=== PATIENT | male | born 1960 | race Caucasian/White ===

== ENCOUNTER → 2020-06-19 09:47 | Outpatient (CLI) | payer OTHER, SELFPAY ==
[2020-06-19 11:07] LABS: Add Manual Diff / Slide Review NO; Basophils Absolute Auto 0 /uL (0-100); Basophils Percent Auto 0.6 % (0-2); Eosinophils Absolute Auto 100 /uL (0-450); Eosinophils Percent Auto 0.9 % (2-4); Hematocrit 46.2 % (41-53); Lymphocytes Absolute Auto 1800 /uL (1100-4500); Mean Corpuscular HGB Conc 34.7 % (30-36); Mean Corpuscular Hemoglobin 32.2 PG (26-34); Mean Corpuscular Volume 92.8 fL (80-100); Monocytes Absolute Auto 400 /uL (0-900); Monocytes Percent Auto 6.1 % (3-14); Neutrophils Absolute Auto 3600 /uL (1500-7000); Neutrophils Percent Auto 61.4 % (50-75); Platelet Count 209 X10^3/uL (150-400); Red Blood Cell Count 4.98 X10^6/uL (4.5-5.9); Red Cell Distribution Width 12.7 % (11.6-14.8); White Blood Cell Count 5.8 X10^3/uL (4.5-11.0)
[2020-06-19 11:21] LABS: Alanine Aminotransferase 38 IU/L (<50); Albumin 4.6 g/dL (3.5-5.0); Albumin Globulin Ratio 1.5 (1.0-2.8); Alkaline Phosphatase 64 U/L (38-126); Aspartate Aminotransferase 38 IU/L (17-59); Bilirubin Total 0.9 mg/dL (0.2-1.3); Blood Urea Nitrogen 23 mg/dL (9-20); Calcium 9.2 mg/dL (8.4-10.2); Carbon Dioxide 31 mmol/L (22-32); Chloride 102 mmol/L (98-107); Cholesterol 175 mg/dL (140-199); Estimated Glomerular Filt Rate > 60.0 mL/min (>60); Globulin 3.1 g/dL (1.7-4.1); Glucose 98 mg/dL (70-100); HDL Cholesterol 44 mg/dL (40-60); HEMOLYSIS < 15 (0-50); LDL Cholesterol Calculated 102 mg/dL (<100); Sodium 139 mmol/L (137-145); Total Protein 7.7 g/dL (6.3-8.2); Triglycerides 143 mg/dL (35-150)
[2020-06-19 11:51] LABS: Prostate Specific Antigen 1.13 ng/mL (0.10-4.00)
== END ==
PROVIDERS: PCP Family Medicine; Referring Provider Family Medicine; Visit Provider Family Medicine
DX: Z13.220 Encounter for screening for lipoid disorders (principal)
CPT/HCPCS: 36415; 80053; 80061; 84153; 85025

== ENCOUNTER → 2021-06-30 09:51 | Outpatient (CLI) | payer OTHER, SELFPAY ==
--- NOTE | 2021-06-30 09:54 | DI.RAD.S_ITS ---
PROCEDURE: XR SHOULDER RT MIN 2V INDICATIONS: hip guy TECHNIQUE: 3 views of the shoulder were acquired. COMPARISON: None. FINDINGS: Bones: No fractures or dislocations. No suspicious bony lesions. Visualized ribs appear intact. Mild arthrosis of the AC joint with calcification within the articulation. Soft tissues: No suspicious soft tissue calcifications. IMPRESSION: No acute osseous abnormality. Dictated by: Arden Mendosa M.D. on 06/30/2021 at 10:34 Approved by: Arden Mendosa M.D. on 06/30/2021 at 10:36
--- NOTE | 2021-06-30 09:54 | DI.RAD.S_ITS ---
PROCEDURE: XR HIP W PEL IF DONE RT 2V INDICATIONS: Right hip guy TECHNIQUE: AP pelvis with lateral view(s) of the right hip(s). COMPARISON: None. FINDINGS: Bones: No fractures or dislocations. Pelvic ring appears intact. No suspicious bony lesions. The sacroiliac joints are maintained. Moderate right joint space loss with osteophytosis, sclerosis of the opposing articular surfaces and fibrocystic change. Mild to moderate left joint space loss with osteophytosis. Soft tissues: The visualized bowel gas pattern is normal. No suspicious soft tissue calcifications. IMPRESSION: [id number]-left osteoarthrosis. Dictated by: Arden Mendosa M.D. on 06/30/2021 at 10:22 Approved by: Arden Mendosa M.D. on 06/30/2021 at 10:30
[2021-06-30 12:08] LABS: Add Manual Diff / Slide Review NO; Basophils Absolute Auto 0 /uL (0-100); Basophils Percent Auto 0.5 % (0-2); Eosinophils Absolute Auto 0 /uL (0-450); Eosinophils Percent Auto 0.6 % (2-4); Hematocrit 44.2 % (41-53); Hemoglobin 15.5 g/dL (13.5-17.5); Lymphocytes Absolute Auto 1800 /uL (1100-4500); Lymphocytes Percent Auto 24.5 % (25-40); Mean Corpuscular HGB Conc 35.1 % (30-36); Mean Corpuscular Hemoglobin 32.1 PG (26-34); Mean Corpuscular Volume 91.4 fL (80-100); Monocytes Absolute Auto 500 /uL (0-900); Neutrophils Absolute Auto 5000 /uL (1500-7000); Neutrophils Percent Auto 67.4 % (50-75); Platelet Count 221 X10^3/uL (150-400); Red Blood Cell Count 4.84 X10^6/uL (4.5-5.9); Red Cell Distribution Width 12.9 % (11.6-14.8); White Blood Cell Count 7.4 X10^3/uL (4.5-11.0)
[2021-06-30 13:28] LABS: Alanine Aminotransferase 35 IU/L (<50); Albumin 4.4 g/dL (3.5-5.0); Albumin Globulin Ratio 1.8 (1.0-2.8); Alkaline Phosphatase 59 U/L (38-126); Aspartate Aminotransferase 33 IU/L (17-59); BUN Creatinine Ratio 26.4 (6-22); Bilirubin Total 0.4 mg/dL (0.2-1.3); Blood Urea Nitrogen 24 mg/dL (9-20); Calcium 9.6 mg/dL (8.4-10.2); Carbon Dioxide 26 mmol/L (22-32); Chloride 103 mmol/L (98-107); Cholesterol 169 mg/dL (140-199); Estimated Glomerular Filt Rate > 60.0 mL/min (>60); Globulin 2.4 g/dL (1.7-4.1); Glucose 88 mg/dL (70-100); HDL Cholesterol 50 mg/dL (40-60); HEMOLYSIS < 15 (0-50); LDL Cholesterol Calculated 82 mg/dL (<100); Potassium 4.5 mmol/L (3.4-5.1); Sodium 138 mmol/L (137-145); Total Protein 6.8 g/dL (6.3-8.2); Triglycerides 185 mg/dL (35-150)
[2021-06-30 13:54] LABS: Thyroid Stimulating Hormone 1.79 uIU/mL (0.47-4.68)
== END ==
PROVIDERS: PCP Family Medicine; Referring Provider Family Medicine; Visit Provider Family Medicine
DX: M25.511 Pain in right shoulder (principal); M16.0 Bilateral primary osteoarthritis of hip; M25.551 Pain in right hip; M19.011 Primary osteoarthritis, right shoulder; G89.29 Other chronic pain
CPT/HCPCS: 36415; 73030; 73502; 80053; 80061; 84443; 85025

== ENCOUNTER → 2022-01-04 09:10 | Outpatient (CLI) | payer OTHER, SELFPAY ==
[2022-01-04 11:25] LABS: COVID19 -Nasal RAPID Negative (Negative)
== END ==
PROVIDERS: PCP Family Medicine; Visit Provider Surgery
DX: Z20.822 Contact with and (suspected) exposure to COVID-19 (principal); Z01.812 Encounter for preprocedural laboratory examination
CPT/HCPCS: 87635; C9803

== ENCOUNTER 2022-01-05 06:25 | Day surgery (SDC) | payer OTHER, SELFPAY ==
[2022-01-05] MEDS: LACTATED RINGERS 1,000 ML 84 ML IV (07:21)
[2022-01-05 07:28] VITALS: BP 144/78; PULSE 85; RESP 18; TEMP 36.4; O2SAT 98; BMI 26.9
--- NOTE | 2022-01-05 07:48 | PM.HP.1 ---
History of Present Illness History of Present Illness Date Patient Seen: 01/05/22 Time Patient Seen: 07:48 Chief complaint: SDC Narrative: Gilmar is here for his colonoscopy. He had a colonoscopy 5 or 6 years ago with 3 polyps removed. Patient History Family & Social History Social History: household members spouse Tobacco & Substance use: Smoking Status Never smoker alcohol intake never Substance Use Type does not use Meds Home Medications and Allergies Home Medications Medication Instructions Recorded Confirmed Type meloxicam 15 mg tablet 15 mg PO DAILY 01/04/22 01/05/22 History Allergies Allergy/AdvReac Type Severity Reaction Status Date / Time No Known Drug Allergies Allergy Verified 01/05/22 07:19 Exam Vital Signs (past 8 hours): - 01/05/22 07:28 Temperature 97.6 F Pulse Rate 85 Respiratory Rate 18 Blood Pressure 144/78 H Pulse Oximetry 98 Oxygen Delivery Method Room Air Const General: healthy appearing Resp Effort & Inspection: normal respiratory effort GI Palpation: soft Assessment & Plan Assessment and plan (1) History of colon polyps: Status: Acute Plan 61-year-old man who is in need of a colonoscopy due to a history of polyps. We reviewed the risks and benefits and he would like to proceed. COVID-19 COVID-19 status: Negative Result date/Date tested (Pos, Neg/Pending): 01/04/22 Time Spent With Patient Critical Care time: I spent a total of [] minutes of critical care time on this patient's care today; this time is exclusive of procedural time.
[2022-01-05] MEDS: fentaNYL 250 MCG/5 ML INJ 125 MCG IV (07:59)
[2022-01-05] MEDS: MIDAZOLAM 5 MG/5 ML VIAL 6 MG IV (07:59)
--- NOTE | 2022-01-05 08:25 | PM.OP.COLON ---
Operative Date/Time/Diagnoses Date of procedure: 01/05/22 Time of procedure: 08:25 Pre-op diagnosis: History of polyps Post-op diagnosis: same Procedure & Clinicians Study performed: Colonoscopy Same procedure as scheduled: Yes Procedure Notes Procedure in detail: Surgeon: Kelvin Lam MD Procedure: The patient was brought to the endoscopy suite, placed in left lateral decubitus position. The patient was connected to monitoring devices. A time-out was performed. Sedation was administered. Once the patient was adequately sedated, a digital rectal exam was performed and was normal. The scope was then inserted and advanced to the cecum where the appendiceal orifice was identified and photographed. The scope was then slowly withdrawn over greater than 6 minutes. Mucosa was thoroughly inspected. No lesions were noted. The scope was retroflexed in the rectum. No abnormalities were noted. The scope was straightened and removed. The patient was awakened and brought to recovery. Versed: 6 mg Fentanyl: 125 mcg EBL: 0 Findings: Normal colon Scope withdrawal time: 11 Sedation minutes: 24 Post-procedure Recommendations: Colonoscopy in 10 years Disposition: PACU
[2022-01-05 08:29] VITALS: BP 111/69; PULSE 73; RESP 13; TEMP 36.6; O2SAT 97
[2022-01-05 08:34] VITALS: BP 116/77; PULSE 73; RESP 12; O2SAT 97
[2022-01-05 08:44] VITALS: BP 107/71; BP 122/79; PULSE 73; PULSE 83; RESP 12; O2SAT 96; O2SAT 97
== END 2022-01-05 08:40 | disposition home or self-care (01) ==
PROVIDERS: PCP Family Medicine; Referring Provider Surgery; Visit Provider Surgery
PROC: 0DJD8ZZ Inspection of Lower Intestinal Tract, Via Natural or Artificial Opening Endoscopic (ICD-10-PCS; CPT 45378; principal; 2022-01-05 07:45)
DX: Z12.11 Encounter for screening for malignant neoplasm of colon (principal); Z86.010 Personal history of colon polyps
CPT/HCPCS: 45378; 99152; J2250; J3010

== ENCOUNTER → 2022-10-14 08:04 | Outpatient (CLI) | payer OTHER, SELFPAY ==
[2022-10-14 09:13] LABS: Add Manual Diff / Slide Review NO; Basophils Absolute Auto 0 /uL (0-100); Basophils Percent Auto 0.5 % (0-2); Eosinophils Absolute Auto 100 /uL (0-450); Eosinophils Percent Auto 0.9 % (2-4); Hematocrit 42.8 % (41-53); Hemoglobin 15.1 g/dL (13.5-17.5); Lymphocytes Absolute Auto 1400 /uL (1100-4500); Lymphocytes Percent Auto 21.7 % (25-40); Mean Corpuscular HGB Conc 35.3 % (30-36); Mean Corpuscular Hemoglobin 31.8 PG (26-34); Mean Corpuscular Volume 90.1 fL (80-100); Monocytes Absolute Auto 600 /uL (0-900); Neutrophils Absolute Auto 4300 /uL (1500-7000); Neutrophils Percent Auto 67.9 % (50-75); Platelet Count 190 X10^3/uL (150-400); Red Blood Cell Count 4.75 X10^6/uL (4.5-5.9); Red Cell Distribution Width 12.8 % (11.6-14.8); White Blood Cell Count 6.3 X10^3/uL (4.5-11.0)
[2022-10-14 09:29] LABS: Alanine Aminotransferase 102 IU/L (<50); Albumin 4.1 g/dL (3.5-5.0); Albumin Globulin Ratio 1.7 (1.0-2.8); Alkaline Phosphatase 68 U/L (38-126); Aspartate Aminotransferase 55 IU/L (17-59); BUN Creatinine Ratio 29.7 (6-22); Bilirubin Total 0.7 mg/dL (0.2-1.3); Blood Urea Nitrogen 27 mg/dL (9-20); Calcium 8.5 mg/dL (8.4-10.2); Carbon Dioxide 23 mmol/L (22-32); Chloride 103 mmol/L (98-107); Cholesterol 117 mg/dL (140-199); Estimated Glomerular Filt Rate > 60 mL/min (>60); Globulin 2.4 g/dL (1.7-4.1); Glucose 89 mg/dL (80-110); HDL Cholesterol 39 mg/dL (40-60); HEMOLYSIS < 15 (0-50); LDL Cholesterol Calculated 65 mg/dL (<100); Potassium 4.7 mmol/L (3.4-5.1); Sodium 136 mmol/L (137-145); Total Protein 6.5 g/dL (6.3-8.2); Triglycerides 66 mg/dL (35-150)
[2022-10-14 09:59] LABS: Prostate Specific Antigen 1.67 ng/mL (0.10-4.00)
[2022-10-14 10:35] LABS: Thyroid Stimulating Hormone 1.49 uIU/mL (0.47-4.68)
== END ==
PROVIDERS: PCP Family Medicine; Referring Provider Family Medicine; Visit Provider Family Medicine
DX: Z12.5 Encounter for screening for malignant neoplasm of prostate (principal); Z13.220 Encounter for screening for lipoid disorders; Z13.29 Encounter for screening for other suspected endocrine disorder; Z79.899 Other long term (current) drug therapy
CPT/HCPCS: 36415; 80053; 80061; 84153; 84443; 85025

== ENCOUNTER → 2023-11-17 08:15 | Outpatient (CLI) | payer OTHER, SELFPAY ==
[2023-11-17 09:33] LABS: Add Manual Diff / Slide Review NO; Basophils Absolute Auto 0 /uL (0-100); Basophils Percent Auto 0.5 % (0-2); Eosinophils Absolute Auto 100 /uL (0-450); Eosinophils Percent Auto 1.3 % (2-4); Hematocrit 43.6 % (41-53); Hemoglobin 15.2 g/dL (13.5-17.5); Lymphocytes Absolute Auto 2100 /uL (1100-4500); Lymphocytes Percent Auto 29.7 % (25-40); Mean Corpuscular HGB Conc 34.8 % (30-36); Mean Corpuscular Volume 91.9 fL (80-100); Monocytes Absolute Auto 500 /uL (0-900); Monocytes Percent Auto 6.5 % (3-14); Neutrophils Absolute Auto 4300 /uL (1500-7000); Platelet Count 207 X10^3/uL (150-400); Red Blood Cell Count 4.75 X10^6/uL (4.5-5.9); Red Cell Distribution Width 12.8 % (11.6-14.8)
[2023-11-17 10:05] LABS: Alanine Aminotransferase 77 IU/L (<50); Albumin 4.3 g/dL (3.5-5.0); Albumin Globulin Ratio 1.6 (1.0-2.8); Alkaline Phosphatase 75 U/L (38-126); Aspartate Aminotransferase 43 IU/L (17-59); BUN Creatinine Ratio 28.3 (6-22); Bilirubin Total 0.8 mg/dL (0.2-1.3); Blood Urea Nitrogen 26 mg/dL (9-20); Calcium 9.2 mg/dL (8.4-10.2); Carbon Dioxide 26 mmol/L (22-32); Chloride 107 mmol/L (98-107); Cholesterol 174 mg/dL (140-199); Estimated Glomerular Filt Rate > 60 mL/min (>60); Globulin 2.7 g/dL (1.7-4.1); Glucose 95 mg/dL (80-110); HDL Cholesterol 49 mg/dL (40-60); HEMOLYSIS < 15 (0-50); LDL Cholesterol Calculated 108 mg/dL (<100); Potassium 4.7 mmol/L (3.4-5.1); Sodium 140 mmol/L (137-145); Triglycerides 85 mg/dL (35-150)
== END ==
LOC: LAB 08:16
PROVIDERS: PCP Family Medicine; Referring Provider Family Medicine; Visit Provider Family Medicine
DX: Z13.220 Encounter for screening for lipoid disorders (principal)
CPT/HCPCS: 36415; 80053; 80061; 85025

== ENCOUNTER → 2023-12-22 08:50 | Outpatient (CLI) | payer OTHER, SELFPAY ==
[2023-12-22 09:43] LABS: Appearance Urine UA CLEAR; Bilirubin Urine UA NEGATIVE (NEGATIVE); Color Urine UA YELLOW; Glucose Urine UA NEGATIVE (Negative); Ketones Urine UA NEGATIVE (NEGATIVE); Leukocyte Esterase Urine UA NEGATIVE (NEGATIVE); Nitrite Urine UA NEGATIVE (Negative); Occult Blood Urine UA NEGATIVE (Negative); Protein Urine UA NEGATIVE (Negative); Urobilinogen Urine UA 0.2 E.U./dL (0.2)
[2023-12-22 09:51] LABS: Amorphous Sediment Urine 1+; Bacteria Urine None Seen; Culture Indicated Urine Cult Not Indicated; RBC Urine None Seen (0-5/HPF); Squamous Epithelial Cell Urine None Seen (0-5/HPF); Urine Volume 10mL (spun); WBC Urine 0-1/HPF (0-5/HPF)
== END ==
PROVIDERS: PCP Family Medicine; Referring Provider Orthopaedic Surgery; Visit Provider Orthopaedic Surgery
DX: Z01.818 Encounter for other preprocedural examination (principal); R73.9 Hyperglycemia, unspecified; N39.0 Urinary tract infection, site not specified
CPT/HCPCS: 36415; 81001; 83036; 93005

== ENCOUNTER 2024-03-04 08:34 | Day surgery (SDC) | payer OTHER, SELFPAY ==
[2024-02-19 13:43] VITALS: BMI 28.4
[2024-03-04] VITALS (13 sets, daily range): BP systolic 96–156; BP diastolic 54–95; PULSE 89–108; RESP 12–21; TEMP 36.1–37; O2SAT 95–100; BMI 27.6
--- NOTE | 2024-03-04 | DI.RAD.S_ITS ---
PROCEDURE: XR HIP W PEL IF DONE LT 2V INDICATIONS: ANTERIOR LEFT HIP TECHNIQUE: 2 view(s) of the hip acquired. [facility]/04/2024, 14:12. [facility], JULIANN, XR HIP W PEL IF DONE RT 2V, 06/30/2021, 9:55. FINDINGS: Intraoperative views of left hip arthroplasty. The left hip arthroplasty projects in the expected location. IMPRESSION: Intraoperative guidance. Dictated by: Robbi Alcaraz M.D. on 03/04/2024 at 18:56 Approved by: Robbi Alcaraz M.D. on 03/04/2024 at 18:57
--- NOTE | 2024-03-04 06:00 | DI.RAD.S_ITS ---
PROCEDURE: XR HIP W PEL IF DONE LT 2V INDICATIONS: total left hip TECHNIQUE: AP pelvis and lateral view of the hip acquired. COMPARISON: [facility], JULIANN, XR HIP W PEL IF DONE LT 2V, 03/04/2024, 12:46. FINDINGS: Bones: Patient is status post left hip arthroplasty, with hardware components in expected positions. The hip joint appears congruent. The visualized bony structures appear intact. Severe right hip arthritic change. Soft tissues: Overlying postoperative changes are noted. No suspicious soft tissue densities. IMPRESSION: Expected post-operative appearance of a hip arthroplasty. Dictated by: Roxy Sandhu M.D. on 03/04/2024 at 14:44 Approved by: Roxy Sandhu M.D. on 03/04/2024 at 14:44
[2024-03-04] MEDS: CELECOXIB 200 MG CAPSULE PO (08:57)
[2024-03-04] MEDS: ACETAMINOPHEN 325 MG TABLET 975 MG PO (08:57)
[2024-03-04] MEDS: LACTATED RINGERS 1,000 ML 42 ML IV ×3 (08:57→12:34)
[2024-03-04] MEDS: VANCOMYCIN 1,000 MG/200 ML PIGGYBACK 200 MG IV (10:15)
--- NOTE | 2024-03-04 11:03 | P.OP_ITS ---
Operative Date/Time/Diagnoses Date of procedure: 03/04/24 Time of procedure: 11:30 Pre-op diagnosis: Left hip avascular necrosis Post-op diagnosis: same Procedure & Clinicians Procedure: Left total hip arthroplasty anterior approach Same procedure as scheduled: Yes Indications: The patient has had progressively worsening left hip pain with radiographic changes consistent with arthritis. Non-operative management has failed and the patient has requested total hip replacement. The risks, benefits and alternatives to surgery were discussed with the patient prior to proceeding. Risks discussed included, but were not limited to, failure to relieve pain, leg length discrepancy, dislocation, stiffness, infection, nerve damage, deep venous thrombosis, pulmonary embolism, stroke, coma, heart attack, permanent paralysis and , as well as the potential need for eventual revision of the prosthetic. Surgeon: Bharti Lock Hvac Design Engineer: Shamir Denney Anesthesia Type: General and Spinal Operative Notes Findings: Severe left hip avascular necrosis, adequate bone, adequate stability Closure Type: primary Specimen(s): none sent Prosthetic devices, grafts, tissues, transplants, or devices: Lock and nephew R3 52 mm, neutral poly liner,one 6.5 mm screw, anthology A standard offset size 6, 36+ 0 Oxinium head Estimated Blood Loss (mL): 250 Blood products transfused: none Procedure in detail: The patient was brought to the operating room. Patient was carefully positioned in the supine position. Time-out was performed and antibiotics were given. Anesthesia was induced. He was positioned in the on the table in order to allow hyperextension of the hip. The left lower extremity was prepped and draped in a standard sterile fashion. An anterior left hip incision was made 1 fingerbreadth lateral to the anterior superior iliac spine and extended distally towards the greater trochanter. Dissection was carried out through skin and subcutaneous tissues. Superficial hemostasis was achieved. The fascia over the tensor fascia miguel was defined and incised with a knife. Two Allis clamps were used to grasp the fascia. Tensor fascia miguel was retracted laterally. A gelpi retractor was placed. Dissection was carried out down along the neck. The circumflex vessels were carefully identified and cauterized with the Aqua Mantis. A PA was used during the procedure and was essential for intraoperative retraction and safe implantation of the components. There was good visualization of the femoral neck. A Cobra was placed superior to the neck and the gluteus fibers were carefully stripped from that superior aspect of the capsule. A 2nd retractor was placed along the inferior aspect of the neck. The rectus insertion along the capsule was partially released. A 3rd retractor that was then gently placed over the rim of the acetabulum under the rectus. Capsule was carefully incised and released from the intertrochanteric line circumferentially superior to the mid sagittal line and inferiorly to the mid sagittal line until the lesser trochanter was palpable. A tag stitch was placed both in the superior and inferior limb of the capsular insertion. Along the acetabulum capsule was also released up to the mid sagittal 12:00 position. A portion of the labrum was resected. A saw was used to perform an osteotomy at the level of the intertrochanteric line and the junction of the superior femoral neck leaving approximately 1 finger breath of residual inferior neck above the lesser trochanter. A 2nd cut was made along the femoral neck at the base of the head and a napkin ring of neck was removed. Corkscrew was placed in the femoral head and the head was removed without difficulty. Retractors were then repositioned around the acetabulum. Residual labrum was resected and additional osteophytes were removed. A reamer that was 4 mm below the templated size was placed by hand in the acetabulum and it was reamed to centralize the acetabulum. It was then reamed up to 2 under the templated size and fluoroscopy was brought in to confirm the position of the reaming and depth of reaming. I reamed 1 under the anticipated size. A trial cup was placed and noted that it was appropriately sized and fluoroscopy confirmed position and depth. The component was open and inserted without difficulty fluoroscopic imaging was used to confirm that the cup had been adequately seated and was well positioned. It was further stabilized with a single screw. Neutral poly liner was placed. The cup was tested and noted to be stable. Attention was then directed to the femur. The femur was gently hyperextended additional capsular release was performed as needed in order to allow adequate visualization of the proximal femur with elevation of the femur. Patient was placed in a hyperextended slightly adducted position with maximum external rotation. Box osteotome was used to check for any residual neck as well as sclerotic bone along the trochanter. [place] pepper was placed in the femur. Ad ditional broaching was performed. Canal finder was used to determine the alignment of the canal and position. Size 1 broach was placed. The canal was then appropriately broached up to the templated size as long as there was adequate stability of the broach and serial advancement of the broach without excessive impingement. Specific attention was directed at avoiding varus attempting to direct the distal aspect of the broach more anteriorly and avoiding excessive anteversion. Trial reduction showed acceptable range of motion, good stability, no posterior impingement, sabianist of leg length and appropriate lateral shuck. I also hyperflexed the hip and checked that there was no impingement anteriorly and there was good stability with flexion, adduction and internal rotation. Marcaine and Exparel were injected. The stem was placed without difficulty. Repeat trial reduction and x-ray showed acceptable overall position, length, and no evidence of the femoral fracture. Final head was placed. Wound was meticulously irrigated with normal saline. The hip was reduced and additional Exparel and Marcaine were injected. The capsule was closed with interrupted nonabsorbable sutures. The fascia of the tensor was closed with interrupted and running Vicryl. No drain was placed. Any tensor fascia miguel muscle that appeared to be contused or injured which was a minimal amount was carefully resected. Capsule around the tensor was injected with Exparel and Marcaine. The skin was closed with barbed stitches for the subcutaneous tissue and skin. We also used surgical glue. The wound was dressed sterilely. Brief Betadine soak was also used and was meticulously irrigated with normal saline. Patient was transferred to recovery room in satisfactory condition. Complications: none Post-operative Condition: stable Disposition: Acute Care Plan for aftercare: The patient will be maintained on a standard total hip replacement protocol with weight bearing as tolerated and anterior hip precautions. The patient will receive Aspirin and sequential compression devices for DVT prophylaxis. The patient will be discharged home when safe for the home environment.
--- NOTE | 2024-03-04 11:03 | PM.PREOP ---
Pre-operative Note Interval Note History & Physical reviewed/Exam performed by Physician: Yes Changes to H&P: No
[2024-03-04] MEDS: CEFAZOLIN 2 GM/100 ML PREMIX 100 ML IV ×2 (11:39→19:56)
[2024-03-04] MEDS: TRANEXAMIC ACID 1,000 MG VIAL 1000 MG INJ ×2 (11:45→13:38)
--- NOTE | 2024-03-04 11:56 | SUR.OPER ---
Supine on padded [place] table with bilateral legs secured in padded positioning boots and suspended in positioning spars, operative leg in traction per surgeon. Head on one pillow. Arm on non-operative side secured on padded armboard <90 degrees abduction. Arm on operative side padded and resting across chest then secured with tape over sheet. Padded perineal post in place per surgeon.
[2024-03-04] MEDS: BUPIVACAINE 0.25% (PF) 60 ML, EPINEPHrine 0.3 MG INJ (12:01)
[2024-03-04] MEDS: BUPIVACAINE LIPOSOME 266 MG/20 ML VIAL INJ (13:41)
[2024-03-04] MEDS: LACTATED RINGERS 1,000 ML 100 ML IV ×2 (14:55→23:34)
--- NOTE | 2024-03-04 16:33 | PC.NURSE ---
Patient arrives from PACU at 1450. He is A&OX4, VSS, afebrile. He is initially diaphoretic, but denies dizziness or chills. He is weaned from 2 LNC to RA and 96 %. LLE remains numb and heavy. Aquacel C/D/I. He is oriented to room, call light in reach, IVF LR at 100ml/hr, SCD's on, admission assessment completed, bed alarm on, urinal in reach,IS encouraged and frequent rounding.
--- NOTE | 2024-03-04 18:10 | PT-IP ANOTE ---
PT eval order received and EMR reviewed. Checked on pt but pt still has numbness on LLE up to buttocks area and can only move LLE slightly and does not have full motor control back. pt is not ready for PT eval but obtained PLOF and home set up from pt and spouse. Spouse to come in tomorrow at ~ 9am for possible caregiver training with PT when appropriate. will f/u tomorrow.
[2024-03-04] MEDS: IBUPROFEN 400 MG TABLET PO ×2 (18:21→23:34)
[2024-03-04] MEDS: ACETAMINOPHEN 325 MG TABLET 650 MG PO (19:56)
[2024-03-04] MEDS: ASPIRIN EC 81 MG TABLET PO (20:02)
[2024-03-04] MEDS: DOCUSATE 100 MG CAPSULE PO (20:02)
[2024-03-05] MEDS: IBUPROFEN 400 MG TABLET PO ×2 (03:30→12:59)
[2024-03-05] MEDS: CEFAZOLIN 2 GM/100 ML PREMIX 100 ML IV (03:41)
[2024-03-05 05:45] LABS: Hematocrit 34.1 % (41-53); Hemoglobin 11.9 g/dL (13.5-17.5)
[2024-03-05] MEDS: MELOXICAM 7.5 MG TABLET 15 MG PO (08:21)
[2024-03-05] MEDS: ACETAMINOPHEN 325 MG TABLET 650 MG PO ×2 (08:22→12:58)
--- NOTE | 2024-03-05 08:22 | P.DS_ITS ---
History of Present Illness History of Present Illness Date Patient Seen: 03/05/24 Time Patient Seen: 07:30 Chief complaint: OPB Narrative: Operative Date/Time/Diagnoses Date of procedure: 03/04/24 Time of procedure: 11:30 Pre-op diagnosis: Left hip avascular necrosis Post-op diagnosis: same Procedure & Clinicians Procedure: Left total hip arthroplasty anterior approach Same procedure as scheduled: Yes Indications: The patient has had progressively worsening left hip pain with radiographic changes consistent with arthritis. Non-operative management has failed and the patient has requested total hip replacement. The risks, benefits and alternatives to surgery were discussed with the patient prior to proceeding. Risks discussed included, but were not limited to, failure to relieve pain, leg length discrepancy, dislocation, stiffness, infection, nerve damage, deep venous thrombosis, pulmonary embolism, stroke, coma, heart attack, permanent paralysis and , as well as the potential need for eventual revision of the prosthetic. Surgeon: Bharti Lock Psychology Technician: Shamir Denney Anesthesia Type: General and Spinal Operative Notes Findings: Severe left hip avascular necrosis, adequate bone, adequate stability Closure Type: primary Specimen(s): none sent Prosthetic devices, grafts, tissues, transplants, or devices: Lock and nephew R3 52 mm, neutral poly liner,one 6.5 mm screw, anthology A standard offset size 6, 36+ 0 Oxinium head Estimated Blood Loss (mL): 250 Blood products transfused: none Discharge Providers Provider Date of admission: 03/04/2024 Discharge Date: 03/05/24 Primary care physician: Joesph Miller MD Consults: 03/04/24 06:00 Consult to Anesthesiology Routine Comment: Consulting Provider: Anesthesiologist Reason for consultation: Regional block for post operative pain control Has provider been notified: No 03/04/24 14:56 Consult to Discharge Planning Routine Comment: Consult to Occupational Therapy Evaluate & Treat Comment: Physician Instructions: Evaluate and treat Consult to Physical Therapy Evaluate & Treat Comment: Physician Instructions: post op OBDULIA protocol Discharge provider: Sheldon Munoz PA-C Summary Hospital Course Discharge Diagnosis: Status post left total hip arthroplasty Hospital Course: Multimodal pain control. Physical therapy. Status at Discharge Cognitive/behavioral status at discharge: oriented Functional status at discharge: uses cane/walker Overall status at discharge: patient is back to baseline Time Spent with Patient Time spent: Less than 30 minutes Exam Vital Signs (past 8 hours): Fraction of Inspired Oxygen 26 SaO2/FiO2 Ratio 373 Oxygen Delivery Method Nasal Cannula Oxygen Flow Rate 0 Narrative Exam Narrative: Patient is found lying comfortably in bed. Pain is controlled with oral medications. He was able to ambulate with walker yesterday with assistance. Able to urinate on his own. Denies any nausea vomiting fever chills. Denies any new numbness or tingling down the left leg. 5/5 strength in hip flexors, quadriceps, hamstrings, DF, PF, EHL bilaterally. Sensation to light touch intact throughout BLE. Calves soft, compressible, nontender. Objective Labs 03/05/24 05:10 Labs: Laboratory Results - last 24 hr 03/05/24 05:10 Hgb 11.9 L Hct 34.1 L PFSH Medical History History of COVID-19 (~06/2020) Osteoarthritis Surgical History Hx of colonoscopy (01/05/22) Social History marital status: household members: spouse and children Smoking Status: Never smoker alcohol intake: never substance use type: does not use Discharge Assessment & Plan Assessment and Plan Assessment: Status post left hip total arthroplasty Plan of Treatment: Postoperative plan narrative: Standard total hip replacement protocol with weight-bearing as tolerated and posterior hip precautions Aspirin 81 mg b.i.d. for DVT prophylaxis for 6 weeks Multimodal pain management. Baseline pain control with ibuprofen 400mg and acetaminophen 500 mg q.4 hours. Patient has already been prescribed oxycodone 5 mg q.4 hours PRN for strong pain and Zofran 4 mg take every 8 hours as needed for postoperative nausea. Mobilize with physical therapy Discharge to home. Follow up in clinic in 2 weeks for wound check. Discharge Plan Discharge Plan Patient Disposition: Home Provider Discharge Comment: DC pending PT Approval Discharge orders & Medications Discharge Orders: Discharge (Order); Ordered 03/05/24 Ordered By: Sheldon Munoz Prescriptions: Continued meloxicam 15 mg tablet 15 mg PO DAILY Qty: 90 3RF Follow up/Referrals: Sheldon Munoz PA-C [[employer]] - 03/14/24 1:00 pm (appt:03/14 @ 1:00 with Edu pac @ [facility] [place] [facility] ) Joesph Miller MD [Primary Care Provider] - Diet/Activity/Treatments Diet: Diet as Tolerated Activity: Ambulate multiple times a day. Okay to use walker cane or crutches as needed. Full weight-bearing left leg Skin/Wound/Dressing Care Skin care: Okay to shower. Report to your healthcare provider any signs of infection, such as:: chills, fever, night sweats, increased pain, unusual drainage and unusual redness Dressing: Leave dressing on. Visit Report/Discharge Packet Instructions: DI for Hip Replacement, DI for Prescription Opioid Use Stand Alone Forms: Patient Portal/API, Surgery Discharge Discharge Data Primary Care Provider: Joesph Miller Attending Provider: Bharti Lock VTE Deep Vein Thrombosis/Pulmonary Embolism Present on Admission: No
[2024-03-05] MEDS: DOCUSATE 100 MG CAPSULE PO (08:23)
[2024-03-05] MEDS: ASPIRIN EC 81 MG TABLET PO (08:23)
[2024-03-05] MEDS: SODIUM CHLORIDE 0.9% FLUSH 10 ML IV (08:24)
--- NOTE | 2024-03-05 08:34 | CM.DANOTE ---
Initial DCP Assessment Visit Note Reviewed EMR and team rounds for pt's medical status and updates. Met with pt at bedside to introduce self and role, pt was found to be sitting upright in bed, alert/oriented, and able to discuss his preference for home d/c later this morning. Pt resides independently with his and children in [place], his will be transporting him home this morning after he works with PT. He denies any DCP assistance/resource needs at this time. Payor: [facility] Attending: Dr. Bharti Lock Pt is a 63 year-old M with bilateral hip osteoarthritis that has limited his mobility and function with ADL's, despite conservative efforts such as injections and exercise modification. He is post-op day 1 from a total L-hip arthroplasty surgery, and is recovering well with no postoperative complications. He states that he has all the necessary DME for home recovery needs, and is scheduled for OP PT/Ortho f/u visits. Discharge Planning/Care Management CM Discharge Assessment Start: 03/05/24 08:29 Freq: Status: Active Protocol: Document 03/05/24 08:29 DPL (Rec: 03/05/24 08:33 DPL [id number]) Discharge Planning Assessment Assigned Drywall Professional JESSICA Nogueira Advance Directives? No Advance Directives on File No History Provided By Patient,Medical Record Has Patient been admitted in last 30 No days? Prior Living Arrangements House Household Members spouse,children Type of transporation used prior to Drives own vehicle admit Independent with ADL's Yes Is patient alert and oriented? Yes Caregiver for Another No DME Already Rented / Owned Elevated Toilet Seat,FWW / Walker Patient/Family Preference OP PT Therapy Barriers to Discharge No Discharge Plan Home [facility] Hospice,Physical Therapy Transportation Arrangement Spouse Referrals Initiated None needed Whiteboard Updated in Patient Room with Yes name and ext. # of Drywall Professional Review Status In Process Please Provide Date Initial DC 03/05/24 Assessment Was Performed Pre-Anesthesia Assessment Start: 02/19/24 13:42 Freq: Status: Active Protocol: Document 02/19/24 13:43 CAB (Rec: 02/19/24 14:17 CAB [id number]) Pre-Anesthesia Assessment Preferred Name Job Patient Information Reviewed Via Phone Assessment Assessment Completed With Patient Diagnostic Results BMP/CMP,CBC,EKG Comment Labs/EKG @ Primary Care Provider Joesph Miller Seen Specialist in Last 12 Months Yes Specialist Seen Orthopedist Primary Language Romanian Solar Energy Technician Required No Height 172.72 cm Weight 84.822 kg Body Mass Index (BMI) 28.4 Hearing Ability Normal Visual Impairment No Limitations Visual Assist Magnifying Glass Dentition Type Teeth, Natural Present Barriers to Learning None Hx Anesthesia Reactions No: Pt does not have a prior surgical history Hx Family Anesthesia Reaction No Hx Malignant Hyperthermia No Hx Blood Transfusions No Hx Blood Transfusion Reaction No Anesthesia Review Requested No Arts Administrator No alcohol intake never Smoking Status Never smoker Substance Use Type does not use Pain Present Pain Reported Musculoskeletal Symptoms Abnormal Gait,Difficulty Walking,Joint Pain History of Falling (Recent or History of No ) Patient is completely paralyzed or No completely immobile Mental Status Oriented to own ability Is patient on oxygen? No Does patient have REGALADO/SOB No Hx Sleep Apnea No CPAP/BIPAP use not prescribed Currently Taking a Beta [place] No Can You Climb a Flight of Stairs Without Yes SOB Hx Chest Pain No Hx SOB No Hx Syncope or Dizziness No Anti-Coagulant Therapy No Has a Collections Clerk No Cardiac Testing No Hx Pacemaker/ICD No Pacemaker Rep Required? No Cardiac Clearance Received No Diet Type At Home Regular Dysphagia No Gastrointestinal Symptoms None Chronic UTI No Bladder Pattern Nocturia Urinary Catheter Present No Hx Urinary Self Catheterization No Diabetes No HgbA1C 6.0 Date 12/22/23 Presence of External or Internal Medical No Devices Received a COVID vaccine? No Marital Status Lives With spouse,children Current Living Arrangements House Number of Floors (Floors) Two Floors Support System Child/Children,Spouse Does the Patient Have Assistance After Yes Surgery Patient Discharge Plan Description Return Home Comment Pt advised possible same day surgery per surgeon Feels Safe in Current Environment Yes Been Physically Hurt or Threatened By a No Person in Current Environment Do you have thoughts of harming yourself None or others? Are you currently considering suicide? No Do you have a plan to hurt yourself or No Plan others? Do You Have Any Spiritual Beliefs That No May Affect Your HC Choices? Do You Have Any Cultural Practices That No May Affect Your HC Choices? Comment Binh Who Can We Speak to About Patient's Care Family, friends Identifying Code for Release of Patient Declines to issue Information Health Care Proxy/Next of Kin Lilly () Health Care Proxy Emergency Contact Name Lilly () Emergency Contact Advance Directives? No Power of Air Intercept Controller Supervisor No PAC Instructions Durable medical equipment, Medications to take/avoid, Nasal antibiotic,No ETOH/ petroleum product on skin DOS, NPO,Post-op transportation,Pre -surgical wash,Sensory aids, Sturdy shoes/comfortable clothes,Do not bring valuables and remove jewelry
--- NOTE | 2024-03-05 08:50 | PT.IIE ---
Current Diagnoses Unilateral primary osteoarthritis, left hip (03/04/24) Surgery Performed Operation Date: 03/04/24 10:45 Actual Procedures p Total Hip Arthroplasty/Anterior Approach(Left) - Bharti Lock MD Surgical History (Last Reviewed 03/04/24 @ 08:56 by Julianna Menon, RN) Hx of colonoscopy (01/05/22) Medical History (Last Reviewed 03/04/24 @ 08:56 by Julianna Menon, RN) History of COVID-19 (~06/2020) Osteoarthritis Physical Therapy Inpatient Evaluation/Re-Eval M1 PT/OT-IP Prior Functional Status Start: 03/04/24 18:08 Freq: NEEDED Status: Active Protocol: Document 03/04/24 17:00 AB (Rec: 03/04/24 18:10 AB [id number]) Medical Review Prior Functional Status Medical History Reviewed Yes Communication able to make needs known Mobility and Gait pt stated that he was independent with all mobilities and ambulation without AD Social History Household Members spouse,children Living Arrangements House Number of Floors (Floors) Two Floors Number of Stairs To Enter/Railing? pt will stay on main level of the house no steps to enter the house Home Environment Standard Height Toilet,Tub/ Shower Home Equipment Front Wheel Walker,Straight Cane,Raised Toilet Seat w/ Armrests,Shower Seat with Backrest,Hand Held Shower Additional Social History Comment pt has toilet safety frame M3 PT-IP Subjective Start: 03/04/24 18:08 Freq: NEEDED Status: Active Protocol: Document 03/05/24 08:50 AB (Rec: 03/05/24 12:19 AB [id number]) Subjective Physical Therapy Visit Type Type Initial Evaluation Visit Start Time 08:50 Visit Stop Time 09:55 Number of SALES REPRESENTATIVE PRINTING PAPER Visits 0 Physical Therapy Visit Comments Patient Comments agreeable to do PT Therapy Pain Assessment Pain When Pain Assessed At Rest Pain Present Pain Present Pain Reported Location Left Hip Intensity 4 Scale Used Numeric (0 - 10) Pain Behaviors Guarding Pain Management Techniques Apply Cold,Distraction, Modification of Treatment,Re- positioning,Timing of Activity with Medications M4 PT-IP Mobility and Gait Start: 03/04/24 18:08 Freq: NEEDED Status: Active Protocol: Document 03/05/24 08:50 AB (Rec: 03/05/24 12:19 AB [id number]) PT-Bed Mobility Assessment Supine to Sit Supine to Sit Standby Assistance Sit to Supine Sit to Supine Standby Assistance PT-Transfer Assessment Sit to and From Stand Sit to and from Stand Contact Guard Assistance,1 Person Assistance,Use of Upper Extremities Equipment Transfer Assistive Device Gait Belt,Front Wheeled Walker Orthotic/Prosthetic Devices or Brace: No Transfers Transfer Destination Chair Transfer Technique ambulated Transfer Ability Level of Assist Contact Guard Assistance Comments Mobility Comments pt supine in bed and spouse in room. reviewed post-op folder contents and educated pt and spouse regarding pt's anterior hip precatuions on LLE. pt completed supine to sit SBA but with max cues for techniques. pt requiring min A for sitting balance on EOB initially with increase posterior trunk lean noted. pt with increase trunk guarding and cued to correct. completed sit to stand CGA and cues. pt presents with heavy UE use for standing with unsteady initial standing balance. instructed pt to sit back on EOB. educated on sit <>stand techniques. pt completed sit to stand on EOB CGA and with better transition into standing and steadier standing balance. pt ambulated in room using FWW min A ~ 15 ft max cues for steadiness, hip precautions and correct shuffling gait. pt sat on the chair. educated pt regarding gait pattern and decrease trunk guarding during ambulation. pt completed sit to stand from chair SBA to CGA and ambulated in room ~ 20 ft SBA to CGA and cues. pt sat back on chair. Caregiver training conducted. educated spouse on how to use safety belt and how to assist pt. spouse was able to pust safety belt on pt and assisted pt with sit to stand and ambulation in room using FWW CGA ~ 30 ft. pt sat back on chair and rested. completed sit to stand again from chair with spouse assisting CGA and step transfers to bed using FWW SBA. pt completed sit<> supine SBA without cues. pt transferred back to chair using fWW SBA. positioned pt on the chair. call light and table placed within reach. pt and spouse without further concerns. Gait Assessment Gait Gait Assistance Required: Standby Assistance,Contact Guard Assist Distance (Feet) 40 Able to Maintain Weight Bearing Status Yes During Gait Assistive Devices Assistive Device Gait Belt,Front Wheeled Walker Orthotic/Prosthetic Devices or Brace: No Gait Deviations General Gait Pattern Antalgic,Decreased Feet Clearance Factors Limiting Gait Function Factors Limiting Gait Function Decreased Activity Tolerance, Decreased Strength,Limited Range of Motion,Pain,Poor Safety Awareness PT-Balance Assessment Sitting Balance and Reactions Static Sitting Balance Ability Fair Dynamic Sitting Balance Ability Fair Standing Balance and Reactions Static Standing Balance Ability Fair Dynamic Standing Balance Ability Fair Device Used FWW M5 PT-IP Objective Assessments Start: 03/04/24 18:08 Freq: NEEDED Status: Active Protocol: Document 03/05/24 08:50 AB (Rec: 03/05/24 12:19 AB [id number]) Orientation Orientation/Cognition Level of Alertness Alert Orientation Name,Place,Situation Language Function Ability No Deficits Noted Safety Awareness Decreased Safety Awareness Strength Lower Extremity Strength Assessment Left Impaired Hip 3+/5 Knee 4-/5 Coordination Assessment Gross Coordination Gross Coordination WNL Sensation Assessment Sensation Gross Sensation WNL Muscle Tone Muscle Tone WNL Yes M6 PT-IP Treatment Start: 03/04/24 18:08 Freq: NEEDED Status: Active Protocol: Document 03/05/24 08:50 AB (Rec: 03/05/24 12:19 AB [id number]) Physical Therapy Treatment Exercises Exercises Heel Slides Education Education Provided Precautions,Weight Bearing Status,Post-Op Packet,Safety M7 PT-IP Assessment and Plan Start: 03/04/24 18:08 Freq: NEEDED Status: Active Protocol: Document 03/05/24 08:50 AB (Rec: 03/05/24 12:19 AB [id number]) PT Summary Assessment and Plan Potential Rehabilitation Potential Fair Status of Condition at Evaluation Stable Summary Impairments Pain,ROM,Strength,Balance, Coordination,Bed Mobility, Transfers,Gait,Activity Tolerance Assessment Summary pt is a 63 y/o M s/p L OBDULIA anterior approach POD 1. pt has L hip anterior precautions and is wBAT. pt requiring SBA to CGA with mobility using FWW. caregiver training conducted and spouse was able to assist pt safely. pt may go home when medically stable. Goals Bed Mobility Goal Independent Transfer Goal Independent,Front Wheeled Walker Gait Goal Independent,Front Wheel Walker Gait Distance 200 Days to Meet Goals 3 Frequency of Treatment Frequency Of Treatment Twice a Day Treatment Plan Physical Therapy Treatment Plan Bed Mobility Training,Transfer Training,Gait Training, Therapeutic Exercise,Balance Retraining,Post Op Education, Discharge Planning,Hot or Cold Pack,Neuromuscular Re-ed, Coordination Retraining,Manual Therapy Precautions Anterior Hip Precautions No Hip Extension,No Hip External Rotation Weight Bearing Status Weight Bearing Status Weight Bear as Tolerated Allowed Weight Bearing Amount (enter % LLE WBAT or #) (%) Recommendations To Nursing Amount of Assist Needed 1 Person Assist Discharge Recommendations PT Discharge Recommendations Home with Assistance, Outpatient PT Transportation Needs at Discharge Private Vehicle
--- NOTE | 2024-03-05 08:50 | PT.IIE ---
Current Diagnoses Unilateral primary osteoarthritis, left hip (03/04/24) Surgery Performed Operation Date: 03/04/24 10:45 Actual Procedures p Total Hip Arthroplasty/Anterior Approach(Left) - Bharti Lock MD Surgical History (Last Reviewed 03/04/24 @ 08:56 by Julianna Menon, RN) Hx of colonoscopy (01/05/22) Medical History (Last Reviewed 03/04/24 @ 08:56 by Julianna Menon, RN) History of COVID-19 (~06/2020) Osteoarthritis Physical Therapy Inpatient Evaluation/Re-Eval M1 PT/OT-IP Prior Functional Status Start: 03/04/24 18:08 Freq: NEEDED Status: Active Protocol: Document 03/05/24 08:50 AB (Rec: 03/05/24 12:26 AB [id number]) Medical Review Prior Functional Status Medical History Reviewed Yes Communication able to make needs known Mobility and Gait pt stated that he was independent with all mobilities and ambulation without AD Social History Household Members spouse,children Living Arrangements House Number of Floors (Floors) Two Floors Number of Stairs To Enter/Railing? pt will stay on main level of the house no steps to enter the house Home Environment Standard Height Toilet,Tub/ Shower Home Equipment Front Wheel Walker,Straight Cane,Raised Toilet Seat w/ Armrests,Shower Seat with Backrest,Hand Held Shower Additional Social History Comment pt has toilet safety frame M2 PT-IP Current Condition Start: 03/04/24 18:08 Freq: NEEDED Status: Active Protocol: Document 03/05/24 08:50 AB (Rec: 03/05/24 12:26 AB [id number]) Physical Therapy Current Condition Current Condition Evaluation Date 03/05/24 Treatment Diagnosis s/p L OBDULIA anterior; difficulty in walking Onset Date 03/04/24 M3 PT-IP Subjective Start: 03/04/24 18:08 Freq: NEEDED Status: Active Protocol: Document 03/05/24 08:50 AB (Rec: 03/05/24 12:19 AB [id number]) Subjective Physical Therapy Visit Type Type Initial Evaluation Visit Start Time 08:50 Visit Stop Time 09:55 Number of LARDER COOK Visits 0 Physical Therapy Visit Comments Patient Comments agreeable to do PT Therapy Pain Assessment Pain When Pain Assessed At Rest Pain Present Pain Present Pain Reported Location Left Hip Intensity 4 Scale Used Numeric (0 - 10) Pain Behaviors Guarding Pain Management Techniques Apply Cold,Distraction, Modification of Treatment,Re- positioning,Timing of Activity with Medications M4 PT-IP Mobility and Gait Start: 03/04/24 18:08 Freq: NEEDED Status: Active Protocol: Document 03/05/24 08:50 AB (Rec: 03/05/24 12:19 AB [id number]) PT-Bed Mobility Assessment Supine to Sit Supine to Sit Standby Assistance Sit to Supine Sit to Supine Standby Assistance PT-Transfer Assessment Sit to and From Stand Sit to and from Stand Contact Guard Assistance,1 Person Assistance,Use of Upper Extremities Equipment Transfer Assistive Device Gait Belt,Front Wheeled Walker Orthotic/Prosthetic Devices or Brace: No Transfers Transfer Destination Chair Transfer Technique ambulated Transfer Ability Level of Assist Contact Guard Assistance Comments Mobility Comments pt supine in bed and spouse in room. reviewed post-op folder contents and educated pt and spouse regarding pt's anterior hip precatuions on LLE. pt completed supine to sit SBA but with max cues for techniques. pt requiring min A for sitting balance on EOB initially with increase posterior trunk lean noted. pt with increase trunk guarding and cued to correct. completed sit to stand CGA and cues. pt presents with heavy UE use for standing with unsteady initial standing balance. instructed pt to sit back on EOB. educated on sit <>stand techniques. pt completed sit to stand on EOB CGA and with better transition into standing and steadier standing balance. pt ambulated in room using FWW min A ~ 15 ft max cues for steadiness, hip precautions and correct shuffling gait. pt sat on the chair. educated pt regarding gait pattern and decrease trunk guarding during ambulation. pt completed sit to stand from chair SBA to CGA and ambulated in room ~ 20 ft SBA to CGA and cues. pt sat back on chair. Caregiver training conducted. educated spouse on how to use safety belt and how to assist pt. spouse was able to pust safety belt on pt and assisted pt with sit to stand and ambulation in room using FWW CGA ~ 30 ft. pt sat back on chair and rested. completed sit to stand again from chair with spouse assisting CGA and step transfers to bed using FWW SBA. pt completed sit<> supine SBA without cues. pt transferred back to chair using fWW SBA. positioned pt on the chair. call light and table placed within reach. pt and spouse without further concerns. Gait Assessment Gait Gait Assistance Required: Standby Assistance,Contact Guard Assist Distance (Feet) 40 Able to Maintain Weight Bearing Status Yes During Gait Assistive Devices Assistive Device Gait Belt,Front Wheeled Walker Orthotic/Prosthetic Devices or Brace: No Gait Deviations General Gait Pattern Antalgic,Decreased Feet Clearance Factors Limiting Gait Function Factors Limiting Gait Function Decreased Activity Tolerance, Decreased Strength,Limited Range of Motion,Pain,Poor Safety Awareness PT-Balance Assessment Sitting Balance and Reactions Static Sitting Balance Ability Fair Dynamic Sitting Balance Ability Fair Standing Balance and Reactions Static Standing Balance Ability Fair Dynamic Standing Balance Ability Fair Device Used FWW M5 PT-IP Objective Assessments Start: 03/04/24 18:08 Freq: NEEDED Status: Active Protocol: Document 03/05/24 08:50 AB (Rec: 03/05/24 12:19 AB [id number]) Orientation Orientation/Cognition Level of Alertness Alert Orientation Name,Place,Situation Language Function Ability No Deficits Noted Safety Awareness Decreased Safety Awareness Strength Lower Extremity Strength Assessment Left Impaired Hip 3+/5 Knee 4-/5 Coordination Assessment Gross Coordination Gross Coordination WNL Sensation Assessment Sensation Gross Sensation WNL Muscle Tone Muscle Tone WNL Yes M6 PT-IP Treatment Start: 03/04/24 18:08 Freq: NEEDED Status: Active Protocol: Document 03/05/24 08:50 AB (Rec: 03/05/24 12:19 AB [id number]) Physical Therapy Treatment Exercises Exercises Heel Slides Education Education Provided Precautions,Weight Bearing Status,Post-Op Packet,Safety M7 PT-IP Assessment and Plan Start: 03/04/24 18:08 Freq: NEEDED Status: Active Protocol: Document 03/05/24 08:50 AB (Rec: 03/05/24 12:19 AB [id number]) PT Summary Assessment and Plan Potential Rehabilitation Potential Fair Status of Condition at Evaluation Stable Summary Impairments Pain,ROM,Strength,Balance, Coordination,Bed Mobility, Transfers,Gait,Activity Tolerance Assessment Summary pt is a 63 y/o M s/p L OBDULIA anterior approach POD 1. pt has L hip anterior precautions and is wBAT. pt requiring SBA to CGA with mobility using FWW. caregiver training conducted and spouse was able to assist pt safely. pt may go home when medically stable. Goals Bed Mobility Goal Independent Transfer Goal Independent,Front Wheeled Walker Gait Goal Independent,Front Wheel Walker Gait Distance 200 Days to Meet Goals 3 Frequency of Treatment Frequency Of Treatment Twice a Day Treatment Plan Physical Therapy Treatment Plan Bed Mobility Training,Transfer Training,Gait Training, Therapeutic Exercise,Balance Retraining,Post Op Education, Discharge Planning,Hot or Cold Pack,Neuromuscular Re-ed, Coordination Retraining,Manual Therapy Precautions Anterior Hip Precautions No Hip Extension,No Hip External Rotation Weight Bearing Status Weight Bearing Status Weight Bear as Tolerated Allowed Weight Bearing Amount (enter % LLE WBAT or #) (%) Recommendations To Nursing Amount of Assist Needed 1 Person Assist Discharge Recommendations PT Discharge Recommendations Home with Assistance, Outpatient PT Transportation Needs at Discharge Private Vehicle
[2024-03-05 09:19] VITALS: BP 130/76; PULSE 89; RESP 17; TEMP 36.6; O2SAT 96
--- NOTE | 2024-03-05 10:08 | OT.IP.EVAL ---
Current Diagnoses Unilateral primary osteoarthritis, left hip (03/04/24) Surgery Performed Operation Date: 03/04/24 10:45 Actual Procedures p Total Hip Arthroplasty/Anterior Approach(Left) - Bharti Lock MD Past Medical History (Last Reviewed 03/04/24 @ 08:56 by Julianna Menon, RN) History of COVID-19 (~06/2020) Osteoarthritis Surgical History (Last Reviewed 03/04/24 @ 08:56 by Julianna Menon RN) Hx of colonoscopy (01/05/22) Occupational Therapy Inpatient Evaluation/Re-Eval M1 PT/OT-IP Prior Functional Status Start: 03/04/24 18:08 Freq: NEEDED Status: Active Protocol: Document 03/05/24 10:08 [facility] (Rec: 03/05/24 12:49 [facility] [id number]) Medical Review Prior Functional Status Medical History Reviewed Yes Communication able to make needs known Mobility and Gait pt stated that he was independent with all mobilities and ambulation without AD Activities of Daily Living and IADL's Pt not able to do his socks/ shoes due to pain. Social History Household Members spouse,children Living Arrangements House Number of Floors (Floors) Two Floors Number of Stairs To Enter/Railing? pt will stay on main level of the house no steps to enter the house Home Environment Standard Height Toilet,Tub/ Shower Home Equipment Front Wheel Walker,Straight Cane,Raised Toilet Seat w/ Armrests,Shower Seat with Backrest,Hand Held Shower Additional Social History Comment pt has toilet safety frame M2 OT-IP Current Condition Start: 03/05/24 12:35 Freq: Status: Active Protocol: Document 03/05/24 10:08 [facility] (Rec: 03/05/24 12:49 [facility] [id number]) Occupational Therapy Current Condition Current Condition Evaluation Date 03/05/24 Treatment Diagnosis S/P L OBDULIA Anterior approach Diagnosis Onset Date 03/04/24 Post Operative Precautions Anterior Hip Precautions No Hip Extension,No Hip External Rotation M3 OT- IP Subjective and Pain Start: 03/05/24 12:35 Freq: Status: Active Protocol: Document 03/05/24 10:08 [facility] (Rec: 03/05/24 12:49 [facility] [id number]) OT- Subjective Occupational Therapy Visit Type Type Initial Evaluation Visit Start Time 10:08 Visit Stop Time 10:41 Occupational Therapy Visit Comments Patient Comments Pt not wanting to shower but agreed to get dressed. Patient/Caregiver Goals To go home. OT Pain Assessment Pain When Pain Assessed During Mobility Pain Present Pain Present Pain Reported M4 OT- IP ADL's Start: 03/05/24 12:35 Freq: Status: Active Protocol: Document 03/05/24 10:08 [facility] (Rec: 03/05/24 12:49 [facility] [id number]) OT [id number] General Evaluation Self-Feeding Ability Independent OT ADL-Grooming Comments OT Grooming Comments NOt performed. OT ADL-Oral Care Comments Oral Care Comments Not performed. OT ADL-Dressing General Eval Upper Body Dressing Ability Independent Lower Body Dressing Ability Minimal Assistance Areas Needing Assistance Retrieving/Set-up of Clothing, Socks,Shoes Assistive Devices Dressing Assistive Devices Spring Repairer Helper Hand,Sock Aid Comments OT Dressing Comments Pt able to practice use of flash oven operator and sock aid for LB dressing needs. Pt states thinking of getting a sock aid for home use. Educated pt of not to cross his LLE for ADL needs in order to follow his anterior precautions. OT ADL-Toileting Comments OT Toileting Comments Suggested pt take a urinal home. Also that pt can use walk over the toilet with the FWW to urinate as well. OT ADL-Bathing Comments OT Bathing Comments Suggested use of tub bench or try dry run on being able to step into and out of the shower to the shower chair, or if the shower chair is wide enough to be able to sit back to with assist. Pt states to just sponge off initially. M5 OT- IP IADL's Start: 03/05/24 12:35 Freq: Status: Active Protocol: Document 03/05/24 10:08 [facility] (Rec: 03/05/24 12:49 [facility] [id number]) OT-Instrumental Activities of Daily Living Home Safety Awareness Awareness of Need for Assistance at Home Good Awareness Ability to Problem Solve Emergency Able to Problem Solve Situations Home Safety Comments Pt's has a supportive to assist and aware that he may be still groggy from surgery. Meal Preparation Meal Preparation Caregiver Provides Assist Market Asset Protection Manager Market Asset Protection Manager Caregiver Provides Assist M6 OT- IP Functional Cognition Start: 03/05/24 12:35 Freq: Status: Active Protocol: Document 03/05/24 10:08 [facility] (Rec: 03/05/24 12:49 [facility] [id number]) Cognitive Factors Limiting Selfcare Function Cognitive Ability Level of Alertness Alert Patient Orientation Name,Age,Birthday,Month,Date, Year,Day of Week,Place, Situation Attention Span Ability Capable of Focused Attention, Capable of Sustained Attention Ability to Follow Commands Able to Follow One Step Commands Memory Description No Deficits Noted Cognitive Comments Cognitive Assessment Comments Pt able to recall and follow his anterior hip precautions for ADL and mobility needs. OT- Vision and Hearing OT- Hearing Assessment OT- Hearing Assessment WFL M7 OT- IP Mobility and Balance Start: 03/05/24 12:35 Freq: Status: Active Protocol: Document 03/05/24 10:08 [facility] (Rec: 03/05/24 12:49 [facility] [id number]) OT-Transfer Assessment Sit to and From Stand Sit to and from Stand Standby Assistance Comments Mobility Comments Educated pt not to hesitate when coming up to stand. OT- Balance Assessment Sitting Balance and Reactions Static Sitting Balance Ability Good Dynamic Sitting Balance Ability Good Standing Balance and Reactions Static Standing Balance Ability Good M8 OT- IP Objective Assessments Start: 03/05/24 12:35 Freq: Status: Active Protocol: Document 03/05/24 10:08 [facility] (Rec: 03/05/24 12:49 [facility] [id number]) OT Gross Range of Motion Upper Extremity Range of Motion Assessment Within Functional Limits OT Strength Upper Extremity Strength Assessment Within Functional Limits M9 OT- IP Assessment and Plan Start: 03/05/24 12:35 Freq: Status: Active Protocol: Document 03/05/24 10:08 [facility] (Rec: 03/05/24 12:49 [facility] [id number]) OT Summary Assessment and Plan Potential Rehabilitation Potential Excellent Analytic Complexity at Evaluation Low Summary OT Impairments Pain,Strength,Balance, Functional Mobility,Dressing, Bathing Progress Towards Goals Progressing Toward Goals Assessment Summary Pt low complexity and main barrier are pain and will need assist with LB dressing and showering needs. Suggested pt get a tub bench and sock aid. Pt has a supportive family to assist. Goals Dressing Goal Independent,Spring Repairer Helper Hand,Sock Aid Toileting Goal Independent Bathing Goal Standby Assistance Toilet Transfer Goal Independent Shower Transfer Goal Contact Guard Assistance Days to Meet Goals 2 Frequency of Treatment Frequency Of Treatment Once a Day Treatment Plan OT Treatment Plan ADL Training,Functional Mobility,Patient/Family Education,Discharge Planning Discharge Recommendations OT Discharge Recommendations Home with Assistance, Outpatient PT Home Equipment Needs tub bench, sock aid Transportation Needs at Discharge Private Vehicle
--- NOTE | 2024-03-05 13:22 | PC.NURSE ---
Day shift: Paperwork signed and all questions answered. Spouse in room for d/c teachings. Dressing remains intact. CMS ok and PPP. Left unit via WC at approx 1315. Taken and helped into car by this gag writer. Tolerated well. Pt to olive picker new script for oxycodone also.
== END 2024-03-05 13:25 | disposition home or self-care (01) ==
LOC: OR 08:35 → AC 08:35
PROVIDERS: PCP Family Medicine; Referring Provider Orthopaedic Surgery; Visit Provider Orthopaedic Surgery
PROC: (CPT 27130; principal; 2024-03-04 10:45)
DX: M16.12 Unilateral primary osteoarthritis, left hip (principal); M87.052 Idiopathic aseptic necrosis of left femur; M25.752 Osteophyte, left hip
CPT/HCPCS: 27130; 36415; 73502; 76000; 85014; 85018; 97161; 97165; 97530; 97535; C1776; C9290; J0171; J0690; J1100; J2250; J2405; J2704; J3010

== ENCOUNTER → 2024-05-10 07:41 | Outpatient (CLI) | payer OTHER, SELFPAY ==
[2024-03-04 16:47] VITALS: BMI 27.6
[2024-05-10 09:07] LABS: Add Manual Diff / Slide Review NO; Basophils Absolute Auto 100 /uL (0-100); Eosinophils Absolute Auto 100 /uL (0-450); Eosinophils Percent Auto 2.1 % (2-4); Hematocrit 42.7 % (41-53); Hemoglobin 14.5 g/dL (13.5-17.5); Lymphocytes Absolute Auto 1800 /uL (1100-4500); Lymphocytes Percent Auto 29.4 % (25-40); Mean Corpuscular Hemoglobin 31.4 PG (26-34); Mean Corpuscular Volume 92.3 fL (80-100); Monocytes Absolute Auto 400 /uL (0-900); Monocytes Percent Auto 6.8 % (3-14); Neutrophils Absolute Auto 3700 /uL (1500-7000); Neutrophils Percent Auto 60.7 % (50-75); Platelet Count 200 X10^3/uL (150-400); Red Blood Cell Count 4.63 X10^6/uL (4.5-5.9); White Blood Cell Count 6.1 X10^3/uL (4.5-11.0)
[2024-05-10 10:28] LABS: BUN Creatinine Ratio 33.7 (6-22); Blood Urea Nitrogen 30 mg/dL (9-20); Calcium 9.4 mg/dL (8.4-10.2); Carbon Dioxide 25 mmol/L (22-32); Chloride 104 mmol/L (98-107); Estimated Glomerular Filt Rate > 60 mL/min (>60); Glucose 126 mg/dL (80-110); HEMOLYSIS < 15 (0-50); Potassium 4.4 mmol/L (3.4-5.1); Sodium 137 mmol/L (137-145)
== END ==
LOC: LAB 07:42
PROVIDERS: PCP Family Medicine; Referring Provider Orthopaedic Surgery; Visit Provider Orthopaedic Surgery
DX: Z01.812 Encounter for preprocedural laboratory examination (principal)
CPT/HCPCS: 36415; 80048; 85025

== ENCOUNTER 2024-05-20 08:26 | Day surgery (SDC) | payer OTHER, SELFPAY ==
[2024-03-04 16:47] VITALS: BMI 27.6
[2024-05-15 14:21] VITALS: BMI 27.5
[2024-05-20] VITALS (17 sets, daily range): BP systolic 100–159; BP diastolic 66–93; PULSE 75–108; RESP 12–18; TEMP 35.9–36.8; O2SAT 93–100; BMI 27.5
--- NOTE | 2024-05-20 | DI.RAD.S_ITS ---
PROCEDURE: XR HIP W PEL IF DONE RT 4V INDICATIONS: TOTAL RT HIP TECHNIQUE: 4 intraoperative fluoroscopic views of the hip acquired. COMPARISON: [facility], CR, XR HIP W PEL IF DONE LT 2V, 03/04/2024, 14:12. FINDINGS: Intraoperative fluoroscopic images shows right total hip arthroplasty. Right hip alignment is anatomic. There is also prior left total hip arthroplasty. IMPRESSION: Fluoro guidance was provided intraoperatively for right total hip arthroplasty. Dictated by: Lj Vann M.D. on 05/20/2024 at 12:44 Approved by: Lj Vann M.D. on 05/20/2024 at 12:44
--- NOTE | 2024-05-20 06:00 | DI.RAD.S_ITS ---
PROCEDURE: XR HIP W PEL IF DONE RT 2V INDICATIONS: panda TECHNIQUE: AP pelvis and lateral view of the hip acquired. COMPARISON: [facility], CR, XR HIP W PEL IF DONE RT 4V, 05/20/2024, 11:35. FINDINGS: Bones: Patient is status post right hip arthroplasty, with hardware components in expected positions. The hip joint appears congruent. The visualized bony structures appear intact. Soft tissues: Overlying postoperative changes are noted. No suspicious soft tissue densities. IMPRESSION: Expected post-operative appearance of a hip arthroplasty. Dictated by: Lj Vann M.D. on 05/20/2024 at 13:17 Approved by: Lj Vann M.D. on 05/20/2024 at 13:18
[2024-05-20] MEDS: LACTATED RINGERS 1,000 ML 42 ML IV ×2 (09:09→11:59)
[2024-05-20] MEDS: CELECOXIB 200 MG CAPSULE PO (09:10)
[2024-05-20] MEDS: ACETAMINOPHEN 325 MG TABLET 975 MG PO (09:10)
[2024-05-20] MEDS: VANCOMYCIN 1,000 MG/200 ML PIGGYBACK 200 MG IV (09:27)
--- NOTE | 2024-05-20 10:07 | PM.PREOP ---
Pre-operative Note Interval Note History & Physical reviewed/Exam performed by Physician: Yes Changes to H&P: No
--- NOTE | 2024-05-20 10:08 | P.OP_ITS ---
Operative Date/Time/Diagnoses Date of procedure: 05/20/24 Time of procedure: 11:00 Pre-op diagnosis: Right hip avascular necrosis Post-op diagnosis: same Procedure & Clinicians Procedure: Right total hip arthroplasty anterior approach Same procedure as scheduled: Yes Indications: The patient has had progressively worsening right hip pain with radiographic changes consistent with arthritis. Non-operative management has failed and the patient has requested total hip replacement. The risks, benefits and alternatives to surgery were discussed with the patient prior to proceeding. Risks discussed included, but were not limited to, failure to relieve pain, leg length discrepancy, dislocation, stiffness, infection, nerve damage, deep venous thrombosis, pulmonary embolism, stroke, coma, heart attack, permanent paralysis and , as well as the potential need for eventual revision of the prosthetic. Surgeon: Bharti Lock Formulation Technician: Shamir Denney Anesthesia Type: General and Spinal Operative Notes Findings: Severe right hip avascular necrosis, adequate bone, adequate stability Closure Type: primary Specimen(s): none sent Prosthetic devices, grafts, tissues, transplants, or devices: Lock and nephew R3 52 mm, neutral poly liner,one 6.5 mm screw, size 6 anthology A, 36 x +0 Oxinium head Estimated Blood Loss (mL): 250 Blood products transfused: none Procedure in detail: The patient was brought to the operating room. Patient was carefully positioned in the supine position. Time-out was performed and antibiotics were given. Anesthesia was induced. He was positioned in the on the table in order to allow hyperextension of the hip. The right lower extremity was prepped and draped in a standard sterile fashion. An anterior right hip incision was made 1 fingerbreadth lateral to the anterior superior iliac spine and extended distally towards the greater trochanter. Dissection was carried out through skin and subcutaneous tissues. Superficial hemostasis was achieved. The fascia over the tensor fascia miguel was defined and incised with a knife. Two Allis clamps were used to grasp the fascia. Tensor fascia miguel was retracted laterally. A gelpi retractor was placed. Dissection was carried out down along the neck. The circumflex vessels were carefully identified and cauterized with the Aqua Mantis. A PA was used during the procedure was essential for intraoperative retraction and safe implantation of the components. There was good visualization of the femoral neck. A Cobra was placed superior to the neck and the gluteus fibers were carefully stripped from that superior aspect of the capsule. A 2nd retractor was placed along the inferior aspect of the neck. The rectus insertion along the capsule was partially released. A 3rd retractor that was then gently placed over the rim of the acetabulum under the rectus. Capsule was carefully incised and released from the intertrochanteric line circumferentially superior to the mid sagittal line and inferiorly to the mid sagittal line until the lesser trochanter was palpable. A tag stitch was placed both in the superior and inferior limb of the capsular insertion. Along the acetabulum capsule was also released up to the mid sagittal 12:00 position. A portion of the labrum was resected. A saw was used to perform an osteotomy at the level of the intertrochanteric line and the junction of the superior femoral neck leaving approximately 1 finger breath of residual inferior neck above the lesser trochanter. A 2nd cut was made along the femoral neck at the base of the head and a napkin ring of neck was removed. Corkscrew was placed in the femoral head and the head was removed without difficulty. Retractors were then repositioned around the acetabulum. Residual labrum was resected and additional osteophytes were removed. A reamer that was 4 mm below the templated size was placed by hand in the acetabulum and it was reamed to centralize the acetabulum. It was then reamed up to 2 under the templated size and fluoroscopy was brought in to confirm the position of the reaming and depth of reaming. I reamed 1 under the anticipated size. A trial cup was placed and noted that it was appropriately sized and fluoroscopy confirmed position and depth. The component was open and inserted without difficulty fluoroscopic imaging was used to confirm that the cup had been adequately seated and was well positioned. Neutral poly liner was placed. The cup was tested and noted to be stable. Attention was then directed to the femur. The femur was gently hyperextended additional capsular release was performed as needed in order to allow adequate visualization of the proximal femur with elevation of the femur. Patient was placed in a hyperextended slightly adducted position with maximum external rotation. Box osteotome was used to check for any residual neck as well as sclerotic bone along the trochanter. [place] pepper was placed in the femur. Additional broaching was performed. Canal finder was used to determine the alignment of the canal and position. Size 1 broach was placed. The canal was then appropriately broached up to the templated size as long as there was adequate stability of the broach and serial advancement of the broach without excessive impingement. Specific attention was directed at avoiding varus attempting to direct the distal aspect of the broach more anteriorly and avoiding excessive anteversion. Trial reduction showed acceptable range of motion, good stability, no posterior impingement, congregation of leg length and appropriate lateral shuck. I also hyperflexed the hip and checked that there was no impingement anteriorly and there was good stability with flexion, adduction and internal rotation. Marcaine and Exparel were injected.. The stem was placed without difficulty. Repeat trial reduction and x-ray showed acceptable overall position, length, and no evidence of the femoral fracture. Final head was placed. Wound was meticulously irrigated with normal saline. The hip was reduced and additional Exparel and Marcaine were injected. The capsule was closed with interrupted nonabsorbable sutures. The fascia of the tensor was closed with interrupted and running Vicryl. No drain was placed. Any tensor fascia miguel muscle that appeared to be contused or injured which was a minimal amount was carefully resected. Capsule around the tensor was injected with Exparel and Marcaine. The skin was closed with barbed stitches for the subcutaneous tissue and skin. We also used surgical glue. The wound was dressed sterilely. Brief Betadine soak was also used and was meticulously irrigated with normal saline. Patient was transferred to recovery room in satisfactory condition. Complications: none Post-operative Condition: stable Disposition: Acute Care Plan for aftercare: The patient will be maintained on a standard total hip replacement protocol with weight bearing as tolerated and anterior hip precautions. The patient will receive Aspirin and sequential compression devices for DVT prophylaxis. The patient will be discharged home when safe for the home environment.
--- NOTE | 2024-05-20 10:32 | SUR.OPER ---
Patient supine on padded Sheldon table, one arm on padded arm board at <90, other arm padded and secured with tape across patient's chest, both legs secured in padded traction boots and positioned per surgeon, padded post at patient's groin, pressure points checked and padded.
[2024-05-20] MEDS: CEFAZOLIN 2 GM/100 ML PREMIX 100 ML IV ×2 (10:45→19:31)
[2024-05-20] MEDS: BUPIVACAINE 0.25% (PF) 60 ML, EPINEPHrine 0.3 MG INJ (10:56)
[2024-05-20] MEDS: TRANEXAMIC ACID 1,000 MG VIAL 2000 MG INJ ×2 (10:56→12:28)
[2024-05-20] MEDS: BUPIVACAINE LIPOSOME 266 MG/20 ML VIAL INJ (10:57)
--- NOTE | 2024-05-20 13:19 | SUR.PHASEI ---
Tried to call report and the RN is unable to take report. She is in a room.
[2024-05-20] MEDS: LACTATED RINGERS 1,000 ML 100 ML IV (14:38)
--- NOTE | 2024-05-20 15:22 | OT.IPNOTE ---
Spoke to pt regarding OT needs. Pt just had his other hip done 03/04/24 and has no OT needs at this time. Pt has a very supportive to assist and that they did sampler pickup a shower chair that was suggested from last admission. Pt states just wanting to see PT. Discharge OT eval orders.
[2024-05-20] MEDS: ACETAMINOPHEN 325 MG TABLET 650 MG PO (17:13)
[2024-05-20] MEDS: ASPIRIN EC 81 MG TABLET PO (20:30)
[2024-05-21] VITALS: BP 113/74; PULSE 100; RESP 18; TEMP 36.1; O2SAT 95
[2024-05-21] MEDS: CEFAZOLIN 2 GM/100 ML PREMIX 100 ML IV (02:41)
[2024-05-21] MEDS: ACETAMINOPHEN 325 MG TABLET 650 MG PO ×2 (02:45→09:00)
[2024-05-21 04:33] LABS: Hematocrit 36.6 % (41-53); Hemoglobin 12.8 g/dL (13.5-17.5)
[2024-05-21] MEDS: LACTATED RINGERS 1,000 ML 100 ML IV (05:16)
--- NOTE | 2024-05-21 07:28 | PM.DS.1 ---
History of Present Illness History of Present Illness Date Patient Seen: 05/21/24 Time Patient Seen: 07:29 Chief complaint: Hip pain Narrative: Hip pain is [id number]. No fever or chills. No nausea or vomiting. Patient has his home to assist him. Patient has been out of bed since surgery. Patient urinating on his own. Discharge Providers Provider Discharge Date: 05/21/24 Primary care physician: Joesph Miller MD Consults: 05/20/24 06:00 Consult to Anesthesiology Routine Comment: Consulting Provider: Anesthesiologist Reason for consultation: Regional block for post operative pain control 05/20/24 13:45 Consult to Discharge Planning Routine Comment: Consult to Occupational Therapy Evaluate & Treat Comment: Physician Instructions: Evaluate and treat Consult to Physical Therapy Evaluate & Treat Comment: Physician Instructions: post op OBDULIA protocol Discharge provider: Shamir Denney PA-C Summary Hospital Course Discharge Diagnosis: Right hip avascular necrosis Hospital Course: Right total hip arthroplasty anterior approach Same procedure as scheduled: Yes Indications: The patient has had progressively worsening right hip pain with radiographic changes consistent with arthritis. Non-operative management has failed and the patient has requested total hip replacement. The risks, benefits and alternatives to surgery were discussed with the patient prior to proceeding. Risks discussed included, but were not limited to, failure to relieve pain, leg length discrepancy, dislocation, stiffness, infection, nerve damage, deep venous thrombosis, pulmonary embolism, stroke, coma, heart attack, permanent paralysis and , as well as the potential need for eventual revision of the prosthetic. Surgeon: Bharti Lock Nickel Plant Operator: Shamir Denney Anesthesia Type: General and Spinal Operative Notes Findings: Severe right hip avascular necrosis, adequate bone, adequate stability Closure Type: primary Specimen(s): none sent Prosthetic devices, grafts, tissues, transplants, or devices: Lock and nephew R3 52 mm, neutral poly liner,one 6.5 mm screw, size 6 anthology A, 36 x +0 Oxinium head Estimated Blood Loss (mL): 250 Blood products transfused: none Patient admitted for right total hip arthroplasty. Patient consented to the same. Patient underwent right total hip arthroplasty May 20, 2024. Patient back in his room recovering in stable condition. Patient will mobilize with physical therapy. Multimodal pain management. Anterior hip precautions. Discharge home today after physical therapy if safe for home environment. Exam Vital Signs (past 8 hours): - 05/21/24 00:00 Temperature 97 F L Pulse Rate 100 H Respiratory Rate 18 Blood Pressure 113/74 Pulse Oximetry 95 Oxygen Flow Rate 0 Oxygen Delivery Method Nasal Cannula Oxygen Flow Rate 0 Narrative Exam Narrative: 63-year-old resting comfortably in bed no apparent distress. Neurovascular status is intact bilateral lower extremities. Const General: cooperative and comfortable Nutritional Appearance: average body habitus Resp Effort & Inspection: normal respiratory effort and able to speak in complete sentences Objective Labs 05/21/24 04:21 Labs: Laboratory Results - last 24 hr 05/21/24 04:21 Hgb 12.8 L Hct 36.6 L PFSH Medical History History of COVID-19 (~06/2020) Osteoarthritis Surgical History History of total left hip arthroplasty (03/04/24) Hx of colonoscopy (01/05/22) Social History marital status: household members: spouse and children Smoking Status: Never smoker alcohol intake: never substance use type: does not use Discharge Assessment & Plan Assessment and Plan Assessment: Patient progressing as expected Plan of Treatment: Multimodal pain management Anterior hip precautions Discharge home today after PT if safe for home environment Discharge Plan Discharge Plan Patient Disposition: Home Discharge orders & Medications Discharge Orders: Discharge (Order); Ordered 05/21/24 Ordered By: Shamir Denney Prescriptions: New acetaminophen 325 mg Tablet 650 mg PO Q6H PRN (Reason: Fever/Mild Pain (1-3)) Qty: 60 0RF aspirin 81 mg Tablet,Delayed Release (Dr/Ec) 81 mg PO BID Qty: 60 0RF polyethylene glycol 3350 17 gram Powder In Packet 17 g PO DAILY PRN (Reason: Constipation) Qty: 14 0RF Continued meloxicam 15 mg tablet 15 mg PO DAILY Qty: 90 3RF Follow up/Referrals: Joesph Miller MD [Primary Care Provider] - Bharti Lock MD [Physician] - (2 weeks as scheduled) Diet/Activity/Treatments Diet: Diet as Tolerated Activity: Weightbearing as tolerated, anterior hip precautions Cold/Heat Therapy: Ice to hip as needed Skin/Wound/Dressing Care Report to your healthcare provider any signs of infection, such as:: chills, fever, night sweats, increased pain, unusual drainage and unusual redness Dressing: Keep dressing clean and dry Visit Report/Discharge Packet Instructions: DI for Hip Replacement Stand Alone Forms: Patient Portal/API, Surgery Discharge Discharge Data Primary Care Provider: Joesph Miller Attending Provider: Bharti Lock VTE Deep Vein Thrombosis/Pulmonary Embolism Present on Admission: No
[2024-05-21 08:00] VITALS: BP 122/77; PULSE 93; RESP 18; TEMP 36.4; O2SAT 93
[2024-05-21] MEDS: MELOXICAM 7.5 MG TABLET 15 MG PO (09:00)
[2024-05-21] MEDS: ASPIRIN EC 81 MG TABLET PO (09:00)
--- NOTE | 2024-05-21 09:01 | CM.DANOTE ---
DCP Assessment Note Pt is a 63yo M POD1 from left hip surgery with Dr. Lock. Pt had right hip surgery with Dr. Lock February [address]24. PCP Dr. 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 Per chart, last hip surgery in February pt discharged home same day with family support, no CM needs. HEALTH OCCUPATIONS TEACHER met with pt in room and introduced self and role. Pt confirms living in [place] with spouse. Pt reports having all the necessary equipment from previous surgery. Pt preference is to dc home earlier today, denies and DCP assistance/resources at this time. PT pending. OT met with pt and determined no OT needs at this time. P: home later today with spouse support and OP PT follow up. No identified barriers to safe dc home at this time. CM team will continue to follow as needed JESSICA Diamond Discharge Planning/Care Management Advanced directive, confirm from FAMILY Start: 05/20/24 14:12 Freq: Q24H Status: Active Protocol: Document 05/20/24 14:12 LW (Rec: 05/20/24 14:16 LW [id number]) Advance Directive, confirm on record Time 14:16 Person contacted pt Copy received No CM Discharge Assessment Start: 05/21/24 09:00 Freq: Status: Active Protocol: Document 05/21/24 09:00 SL (Rec: 05/21/24 09:01 SL [id number]) Discharge Planning Assessment Assigned Tape Maker JESSICA Murphy DPOA/Assigned Designee Name Lilly, spouse Contact Information [phone] Advance Directives? No Advance Directives on File No History Provided By Patient,Medical Record Prior Living Arrangements House Household Members spouse,children Type of transporation used prior to Drives own vehicle admit Independent with ADL's Yes Is patient alert and oriented? Yes DME Already Rented / Owned FWW / Walker,Other Patient/Family Preference OP PT Therapy Discharge Plan Home Transportation Arrangement Spouse Referrals Initiated None needed Whiteboard Updated in Patient Room with Yes name and ext. # of Tape Maker Review Status In Process Please Provide Date Initial DC 05/21/24 Assessment Was Performed Next Review Type Continued Stay Review Pre-Anesthesia Assessment Start: 05/15/24 13:57 Freq: Status: Active Protocol: Document 05/15/24 14:21 LB (Rec: 05/15/24 14:33 LB [id number]) Pre-Anesthesia Assessment Patient Information Reviewed Via Phone Assessment Assessment Completed With Patient Diagnostic Results BMP/CMP,CBC Comment 05/10/24 at . Primary Care Provider Joesph Miller Medical Clearance Received Not Applicable Seen Specialist in Last 12 Months Yes Specialist Seen Orthopedist Primary Language Salvadorean Preferred Language Salvadorean Supervisor Vendor Quality Required No Height 172.72 cm Weight 82.1 kg Body Mass Index (BMI) 27.5 Hearing Ability Normal Visual Assist Glasses Dentition Type Teeth, Natural Present Barriers to Learning None Comment Reading glasses. Hx Anesthesia Reactions No Hx Family Anesthesia Reaction No Hx Malignant Hyperthermia No Hx Blood Transfusions No Hx Blood Transfusion Reaction No Anesthesia Review Requested No Butcher Scullion No alcohol intake never Smoking Status Never smoker Substance Use Type does not use Pain Present Pain Reported Comment right hip. Musculoskeletal Symptoms Joint Pain History of Falling (Recent or History of No ) Patient is completely paralyzed or No completely immobile Mental Status Oriented to own ability Is patient on oxygen? No Does patient have REGALADO/SOB No Hx Sleep Apnea No CPAP/BIPAP use not prescribed Currently Taking a Beta [place] No Can You Climb a Flight of Stairs Without Yes SOB Hx Chest Pain No Hx SOB No Hx Syncope or Dizziness No Anti-Coagulant Therapy No Cardiac Testing No Hx Pacemaker/ICD No Dysphagia No Chronic UTI No Urinary Catheter Present No Hx Urinary Self Catheterization No Diabetes No Presence of External or Internal Medical Yes: left hip hardware. Devices Have you had any close contact with No someone diagnosed with COVID-19? Are you experiencing any of these No symptoms symptoms? Received a COVID vaccine? No Marital Status Lives With spouse,children Current Living Arrangements House Number of Floors (Floors) Two Floors Number of Stairs To Enter/Railing? no steps need to be used. Support System Spouse Does the Patient Have Assistance After Yes Surgery Patient Discharge Plan Description Return Home Feels Safe in Current Environment Yes Do you have a plan to hurt yourself or No Plan others? Do You Have Any Spiritual Beliefs That No May Affect Your HC Choices? Do You Have Any Cultural Practices That No May Affect Your HC Choices? Emergency Contact Name Lilly () Emergency Contact Advance Directives? No Advance Directives on File No Power of Battery Charger Conveyor Line No PAC Instructions Durable medical equipment, Nasal antibiotic,No ETOH/ petroleum product on skin DOS, NPO,Post-op transportation,Pre -surgical wash,Sturdy shoes/ comfortable clothes,Do not bring valuables and remove jewelry
--- NOTE | 2024-05-21 09:10 | PT.IIE ---
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) Surgery Performed Operation Date: 05/20/24 10:45 Actual Procedures p Total Hip Arthroplasty/Anterior Approach(Right) - Bharti Lock MD Surgical History (Last Reviewed 05/21/24 @ 07:32 by Shamir Denney PA-C) History of total left hip arthroplasty (03/04/24) Hx of colonoscopy (01/05/22) Medical History (Last Reviewed 05/21/24 @ 07:32 by Shamir Denney PA-C) History of COVID-19 (~06/2020) Osteoarthritis Physical Therapy Inpatient Evaluation/Re-Eval M1 PT/OT-IP Prior Functional Status Start: 05/21/24 11:28 Freq: NEEDED Status: Active Protocol: Document 05/21/24 09:10 AB (Rec: 05/21/24 11:40 AB [id number]) Medical Review Prior Functional Status Medical History Reviewed Yes Communication able to make needs known Mobility and Gait pt stated that he was independent with all mobilities and ambulation without AD Social History Household Members spouse,children Living Arrangements House Number of Floors (Floors) Two Floors Number of Stairs To Enter/Railing? 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 M2 PT-IP Current Condition Start: 05/21/24 11:28 Freq: NEEDED Status: Active Protocol: Document 05/21/24 09:10 AB (Rec: 05/21/24 11:40 AB [id number]) Physical Therapy Current Condition Current Condition Evaluation Date 05/21/24 Treatment Diagnosis s/p R OBDULIA anterior; difficulty in walking Onset Date 05/20/24 M3 PT-IP Subjective Start: 05/21/24 11:28 Freq: NEEDED Status: Active Protocol: Document 05/21/24 09:10 AB (Rec: 05/21/24 11:40 AB [id number]) Subjective Physical Therapy Visit Type Type Initial Evaluation Visit Start Time 09:10 Visit Stop Time 09:55 Number of TUBE CUTTER Visits 0 Physical Therapy Visit Comments Patient Comments agreeable to do PT Therapy Pain Assessment Pain When Pain Assessed At Rest Pain Present Pain Present Pain Reported Location Right Hip Intensity 3 Scale Used Numeric (0 - 10) Pain Management Techniques Distraction,Modification of Treatment,Re-positioning, Timing of Activity with Medications M4 PT-IP Mobility and Gait Start: 05/21/24 11:28 Freq: NEEDED Status: Active Protocol: Document 05/21/24 09:10 AB (Rec: 05/21/24 11:40 AB [id number]) PT-Bed Mobility Assessment Supine to Sit Supine to Sit Standby Assistance PT-Transfer Assessment Sit to and From Stand Sit to and from Stand Standby Assistance,Contact Guard Assistance,1 Person Assistance,Use of Upper Extremities Equipment Transfer Assistive Device Gait Belt,Front Wheeled Walker Orthotic/Prosthetic Devices or Brace: No Transfers Transfer Destination Chair Transfer Technique ambulated Comments Mobility Comments pt supine in bed and agreeable to do PT. obtained PLOF and home setup from pt. post-op folder provided and reviewed contents. educated pt on anterior hip precautions. pt had an anterior OBDULIA on LLE ~ 2 months ago but pt does not remember his precautions. BP: 113/65 PA: 106 O2 sat: 99 % pt completed supine to sit SBA . able to sit on EOB SBA. completed sit to stand from EOB CGA and ambulated to chair using FWW ~ 12 ft CGA. slight buckling on R knee noted but able to stabilize afte cued. educated pt regarding techniques for controlled sitting. reviewed precautions again and how to activate R quads during ambulation. pt agreed to walk again. sit to stand from chair SBA and ambulated in the hallway using FWW SBA to CGA ~ 100 ft and cues provided. pt sat back on chair. positioned pt on the chair. call light and table placed within reach. pt without further concerns. Gait Assessment Gait Gait Assistance Required: Standby Assistance,Contact Guard Assist Distance (Feet) 100 Able to Maintain Weight Bearing Status Yes During Gait Assistive Devices Assistive Device Gait Belt,Front Wheeled Walker Orthotic/Prosthetic Devices or Brace: No Gait Deviations General Gait Pattern Antalgic,Decreased Feet Clearance Factors Limiting Gait Function Factors Limiting Gait Function Decreased Activity Tolerance, Decreased Strength,Limited Range of Motion,Pain,Poor Balance,Poor Safety Awareness PT-Balance Assessment Sitting Balance and Reactions Static Sitting Balance Ability Normal Dynamic Sitting Balance Ability Good Standing Balance and Reactions Static Standing Balance Ability Fair Dynamic Standing Balance Ability Fair Device Used FWW M5 PT-IP Objective Assessments Start: 05/21/24 11:28 Freq: NEEDED Status: Active Protocol: Document 05/21/24 09:10 AB (Rec: 05/21/24 11:40 AB [id number]) Orientation Orientation/Cognition Level of Alertness Alert Orientation Name,Place,Situation Language Function Ability No Deficits Noted Safety Awareness Decreased Safety Awareness Memory Description Short Term Impaired Gross Range of Motion Lower Extremity ROM Assessment Within Functional Limits Strength Lower Extremity Strength Assessment Right Impaired Hip 3-/5 Knee 4-/5 Coordination Assessment Gross Coordination Gross Coordination WNL Sensation Assessment Sensation Gross Sensation WNL Muscle Tone Muscle Tone WNL Yes M6 PT-IP Treatment Start: 05/21/24 11:28 Freq: NEEDED Status: Active Protocol: Document 05/21/24 09:10 AB (Rec: 05/21/24 11:40 AB [id number]) Physical Therapy Treatment Exercises Exercises Heel Slides Education Education Provided Precautions,Weight Bearing Status,Post-Op Packet,Safety M7 PT-IP Assessment and Plan Start: 05/21/24 11:28 Freq: NEEDED Status: Active Protocol: Document 05/21/24 09:10 AB (Rec: 05/21/24 11:40 AB [id number]) PT Summary Assessment and Plan Potential Rehabilitation Potential Fair Status of Condition at Evaluation Evolving Summary Impairments Pain,ROM,Strength,Balance, Coordination,Sensation,Tone, Cognition,Bed Mobility, Transfers,Gait,Activity Tolerance Assessment Summary pt is a 63 y/o M s/p R OBDULIA anterior approach POD 1. pt with R hip anterior precautions and is WBAT. pt requiring SBA to CGA with mobility using FWW and plans to go home with spouse to assist him. pt may go home when medically stable. Goals Bed Mobility Goal Independent Transfer Goal Independent,Front Wheeled Walker Gait Goal Independent,Front Wheel Walker Gait Distance 300 Other Goals improve transfers/ambulation using LRAD 300 ft mod I Days to Meet Goals 5 Frequency of Treatment Frequency Of Treatment Twice a Day Treatment Plan Physical Therapy Treatment Plan Bed Mobility Training,Transfer Training,Gait Training, Therapeutic Exercise,Balance Retraining,Post Op Education, Discharge Planning,Hot or Cold Pack,Neuromuscular Re-ed, Coordination Retraining,Manual Therapy Precautions Anterior Hip Precautions No Hip Extension,No Hip External Rotation Weight Bearing Status Weight Bearing Status Weight Bear as Tolerated Allowed Weight Bearing Amount (enter % RLE WBAT or #) (%) Recommendations To Nursing Amount of Assist Needed 1 Person Assist Discharge Recommendations PT Discharge Recommendations Home with Assistance, Outpatient PT Transportation Needs at Discharge Private Vehicle
--- NOTE | 2024-05-21 13:20 | PC.NURSE ---
P discharged home at 1200, escorted off floor in wheelchair accompanied by spouse and hospital staff. IV removed, discharge teaching completed including new medications, wound care and follow up appointments. Patient left the floor with all belongings.
== END 2024-05-21 12:30 | disposition home or self-care (01) ==
LOC: OR 08:26 → AC 08:27
PROVIDERS: PCP Family Medicine; Referring Provider Orthopaedic Surgery; Visit Provider Orthopaedic Surgery
PROC: (CPT 27130; principal; 2024-05-20 10:45)
DX: M87.051 Idiopathic aseptic necrosis of right femur (principal); M25.751 Osteophyte, right hip
CPT/HCPCS: 27130; 36415; 73502; 73503; 76000; 85014; 85018; 97116; 97161; 97530; C1776; C9290; J0171; J0690; J1100; J2250; J2405; J2704

== ENCOUNTER → 2024-11-17 09:01 | Outpatient (CLI) | payer OTHER, SELFPAY ==
[2024-05-20 08:44] VITALS: BMI 27.5
[2024-11-17 09:51] LABS: Cholesterol 179 mg/dL (140-199); HDL Cholesterol 52 mg/dL (40-60); LDL Cholesterol Calculated 111 mg/dL (<100); Triglycerides 82 mg/dL (35-150)
[2024-11-17 10:20] LABS: Prostate Specific Antigen Scrn 1.87 ng/mL (0.1-4.0)
== END ==
PROVIDERS: PCP Family Medicine; Referring Provider Family Medicine; Visit Provider Family Medicine
DX: Z12.5 Encounter for screening for malignant neoplasm of prostate (principal); Z13.220 Encounter for screening for lipoid disorders
CPT/HCPCS: 36415; 80061; G0103